=== PATIENT | female | born 1970 | race Caucasian/White ===

== ENCOUNTER 2021-05-22 07:23 | Outpatient (REF) | payer OTHER, SELFPAY ==
[2021-05-22 12:17] LABS: Alanine Aminotransferase 25 U/L (0-31); Anion Gap 10 (12-20); Aspartate Amino Transferase 22 U/L (5-31); Blood Urea Nitrogen 16 mg/dL (9-16); Calcium 9.3 mg/dL (8.4-10.2); Carbon Dioxide 27 mmol/L (22-29); Chloride 106 mmol/L (96-108); Cholesterol 163 mg/dL; Estimated Average Glucose 111 mg/dL; Estimated Glomerular Filt Rate > 60; Glucose Fasting 112 mg/dL (60-99); HDL Cholesterol 49 mg/dL; Hemoglobin A1c % 5.5 %; LDL Cholesterol Calculated 102 mg/dl; Potassium 4.4 mmol/L (3.3-5.1); Sodium 139 mmol/L (135-145); Triglycerides 61 mg/dL
== END 2021-05-22 07:24 | disposition home or self-care (01) ==
LOC: HO.HMGCLDS 07:23
PROVIDERS: PCP Internal Medicine; Visit Provider Internal Medicine
DX: R73.03 Prediabetes (principal); I65.21 Occlusion and stenosis of right carotid artery; E78.5 Hyperlipidemia, unspecified; E66.09 Other obesity due to excess calories; Z68.33 Body mass index [BMI] 33.0-33.9, adult; Z86.73 Personal history of transient ischemic attack (TIA), and cerebral infarction without residual deficits; I10 Essential (primary) hypertension
CPT/HCPCS: 36415; 80048; 80061; 83036; 84450; 84460

== ENCOUNTER 2021-07-03 16:22 | Outpatient (REF) | payer OTHER, SELFPAY ==
--- NOTE | ~2021-07-03 | MM_ITS ---
EXAMINATION: MM SCREENING DIGITAL BREAST TOMOSYNTHESIS, BILATERAL CLINICAL INFORMATION: Screening. Asymptomatic. The lifetime risk of breast cancer based on the Tyrer-Cuzick Model is 18%. COMPARISON: Mammography: 11/27/2019, 03/30/2017, 01/20/2016 TECHNIQUE: Digital breast tomosynthesis is performed in both the craniocaudal and mediolateral oblique views along with computer-aided detection (CAD). Synthesized 2D images are generated from the tomosynthesis. FINDINGS: There are scattered areas of fibroglandular density (ACR BI-RADS breast composition Category b). There are no significant masses, abnormal calcifications, or other abnormalities. Parenchymal pattern is similar to prior studies. No developing density. The axilla and skin contours are unremarkable. MM/MM tomosynthesis screening BI IMPRESSION: No mammographic evidence of malignancy. ASSESSMENT: BI-RADS 1: Negative RECOMMENDATION: Routine annual mammography screening. This patient's information was entered into a reminder system with a target due date for their next mammogram.
== END 2021-07-03 16:23 | disposition home or self-care (01) ==
LOC: HO.MAMMO 16:22
PROVIDERS: PCP Internal Medicine; Visit Provider Internal Medicine
DX: Z12.31 Encounter for screening mammogram for malignant neoplasm of breast (principal)
CPT/HCPCS: 77063; 77067

== ENCOUNTER → 2021-07-24 15:53 | Outpatient (BNVA) | payer OTHER, SELFPAY | PROVIDERS: PCP Internal Medicine; Visit Provider Nurse Practitioner | DX: Z01.818 Encounter for other preprocedural examination (principal); Z83.71 Family history of colonic polyps | CPT/HCPCS: 99202 ==

== ENCOUNTER 2022-07-13 09:38 | Day surgery (SDC) | payer OTHER, SELFPAY ==
--- NOTE | 2022-07-09 11:59 | HO.ANESPROP2 ---
Documented by User: Maritza Martin NP 07/09/22 12:01 HPI - Anesthesia Eval Consult details Narrative: 51yo F for Colonoscopy PMFSH Active Problems Active Problems: All Active Problems (Updated 07/24/21 @ 17:03 by LIGIA Mora) Family history of polyps in the colon (Acute) Exercise induced bronchospasm (Acute) Acute sinusitis (Acute) History of CVA (cerebrovascular accident) (Acute) Cervical cancer screening (Acute) Obesity (Acute) JUAN on CPAP (Acute) Stenosis of right internal carotid artery (Acute) Prediabetes (Acute) Dyslipidemia (Acute) Essential hypertension (Acute) Past Medical History Medical History (Updated 07/24/21 @ 17:03 by LIGIA Mora) Cervical cancer screening CVA (cerebral vascular accident) Dyslipidemia Essential hypertension Exercise induced bronchospasm History of CVA (cerebrovascular accident) Obesity JUAN on CPAP Prediabetes Stenosis of right internal carotid artery Family History Family History (Updated 05/19/21 @ 14:53 by Liil Latif CMA) Mother Crohn's disease Paternal Grandmother Breast cancer Paternal Grandfather FHx: early [place] Surgical History Surgical History (Updated 07/24/21 @ 16:12 by ALAN Shore) History of colonoscopy History of endoscopy No pertinent past surgical history Social History Social History Housing: House Alcohol intake: former Patient Tobacco Use Status: Former Tobacco user e-Cigarette/Vaping Use: Never Used Are you DNR?: No Advance Directives: No Advance Directives Information Provided: Yes service: No Current occupational status: employed Cognitive needs: No Hearing needs: No Vision needs: No Meds Allergies Allergy/AdvReac Type Severity Reaction Status Date / Time bee sting Allergy Unknown hives Uncoded 07/24/21 16:11 coconut Allergy Unknown hives Uncoded 07/24/21 16:11 Home Medications Medication Instructions Recorded Confirmed Last Taken Type aspirin 81 mg tablet,delayed 81 mg PO BEDTIME 05/02/20 07/07/22 Unknown History release budesonide-formoterol HFA 160 inhalation 05/02/20 05/15/20 Unknown History mcg-4.5 mcg/actuation aerosol inhaler Exam Exam Date and Time: July 09, 2022 115 Assessment and Plan Assessment Anesthesia Assessment: Chart Reviewed Documented by User: Raudel Parker MD 07/13/22 11:41 PMF Past Medical History Medical History (Updated 07/24/21 @ 17:03 by LIGIA Mora) Cervical cancer screening CVA (cerebral vascular accident) Dyslipidemia Essential hypertension Exercise induced bronchospasm History of CVA (cerebrovascular accident) Obesity JUAN on CPAP Prediabetes Stenosis of right internal carotid artery Family History Family History (Updated 05/19/21 @ 14:53 by Lili Latif CMA) Mother Crohn's disease Paternal Grandmother Breast cancer Paternal Grandfather FHx: early [place] Family history of problems with anesthesia: No Surgical History Surgical History (Updated 07/24/21 @ 16:12 by ALAN Shore) History of colonoscopy History of endoscopy No pertinent past surgical history History of Problems with Anesthesia: No Social History Social History Housing: House Alcohol intake: former Patient Tobacco Use Status: Former Tobacco user e-Cigarette/Vaping Use: Never Used Are you DNR?: No Advance Directives: No Advance Directives Information Provided: Yes service: No Current occupational status: employed Cognitive needs: No Hearing needs: No Vision needs: No Meds Allergies Allergy/AdvReac Type Severity Reaction Status Date / Time bee sting Allergy Unknown hives Uncoded 07/24/21 16:11 coconut Allergy Unknown hives Uncoded 07/24/21 16:11 Home Medications Medication Instructions Recorded Confirmed Last Taken Type aspirin 81 mg tablet,delayed 81 mg PO BEDTIME 05/02/20 07/07/22 Unknown History release budesonide-formoterol HFA 160 inhalation 05/02/20 05/15/20 Unknown History mcg-4.5 mcg/actuation aerosol inhaler Exam Airway Mallampati Class: II TM Dist: >3cm Assessment and Plan Assessment Anesthesia Assessment: Anesthesia Plan Discussed Final Anesthetic Review Family History of Problems with Anesthesia: No History of Problems with Anesthesia: No NPO: Yes ASA Class: III Final Preanesthetic Review: No Changes in Pt Med Stat, Meds/Allgs Chart Reviewed, Consent Obtained/Reviewed and Anes Risks/Benef Reviewed Patient Risk: Intermediate Procedure Risk: Low Anesthetic Plan Anesthetic Plan: MAC: Disposition: Standard PACU
[2022-07-13 10:38] LABS: UPreg QC Valid YES; Urine Pregnancy NEGATIVE (NEGATIVE)
[2022-07-13 10:56] VITALS: BP 149/88; PULSE 74; RESP 18; TEMP 36.4; O2SAT 97; BMI 34.2
[2022-07-13] MEDS: Lactated Ringers 1,000 ML 100 ML IVCONT (11:14)
--- NOTE | 2022-07-13 11:36 | MHC.SHP ---
Pre-Procedural Eval Section A Date of Service: 07/13/22 Section B Chief Complaint: Family history of colonic polyps Relevant Family History (Specify if Yes): No Relevant Social History: None Present Medications: see Short Stay Collaborative assessment Medical History: Significant History (Asthma JUAN CVA very mild rt weakness when fatigued Diabetes - borderline High cholesterol Hypertension Carotid artery stenosis) History of Previous Operations: Relevant previous surgery/procedure and date(s) (History of colonoscopy History of endoscopy) Allergies: Allergies Allergy/AdvReac Type Severity Reaction Status Date / Time bee sting Allergy Unknown hives Uncoded 07/24/21 16:11 coconut Allergy Unknown hives Uncoded 07/24/21 16:11 Review of Systems Sugical H&P ROS: Negative: Constitution, Cardiovascular, Respiratory, Neurological, Psychiatric, Hem-Onc, Allergic/Immunologic, Gastrointestinal, Genitourinary, Musculoskeletal, Integumentary, Endocrine and Eyes/Ears/Nose/Throat Exam Surgical H&P Exam: Normal: HEENT, Normal: Heart, Normal: Lungs, Normal: Extremities, Normal: Abdomen, Normal: Skin and Normal: Neurological Plan Diagnosis/Plan: Unchanged I have reviewed the history and physical and performed a pertinent physical examination on my patient. No changes have occurred unless specified. Time Spent With Patient Time: Total time managing care of this patient today ____ minutes.
--- NOTE | 2022-07-13 11:37 | W.PM.OPN ---
Operative Note Operative Note Date of Service: 07/13/22 Narrative: Operative Information Procedure Description: Colonoscopy Indication: fh of colon polyps Anesthesia: MAC COLONOSCOPY Instrument: Olympus variable stiffness ADULT scope 190L Colonoscopy Monitoring: Vital signs and clinical assessment, continuous EKG monitoring, Pulse oximetry, Carbon Dioxide monitoring and blood pressure monitoring were done throughout the procedure. Colon withdrawal time was 13 minutes. Procedure: The patient was placed in the left lateral decubitis position and pre-procedure medications were administered. After a digital rectal examination of the ano-rectum, the video colonoscope was inserted into the rectum and advanced through the colon to the cecum/TI. The colonoscope was slowly withdrawn in a retrograde panoramic fashion and the colon mucosa was carefully examined including a retroflexed view of the rectum. Findings and interventions are described below. Procedure Difficulty: easy Findings: Terminal Ileum-normal Cecum:normal Ascending Colon: normal Transverse Colon -normal Descending Colon:normal Sigmoid Colon: normal Rectum: Retroflexion with small internal hemorrhoids, grade I, 7-9 mm sessile polyp lesion with a waxy yellowish surface, lifted with eleview then removed with cold snare. 2 smaller adjacent sessile polyps 3-4 mm removed with cold forceps Anorectum - normal Colon preparation: [place] Bowel Preparation Scale Right colon; 2 Transverse colon: 3 Left colon; 3 (0 = Unprepared colon segment with mucosa not seen due to solid stool that cannot be cleared. 1 = Portion of mucosa of the colon segment seen, but other areas of the colon segment not well seen due to staining, residual stool and/or opaque liquid. 2 = Minor amount of residual staining, small fragments of stool and/or opaque liquid, but mucosa of colon segment seen well. 3 = Entire mucosa of colon segment seen well with no residual staining, small fragments of stool or opaque liquid) Impression and Post Procedure Diagnosis: polyps (possibly NET) internal hemorrhoids Plan: High fiber diet leaflet Avoid straining at stool, epsom salts and sitz bath, anusol supps or cream Repeat Colonoscopy in 5 years or earlier if clinically indicated Above findings were reviewed with the patient and relevant handouts were provided if indicated.
[2022-07-13 12:19] VITALS: BP 146/74; PULSE 79; RESP 16; TEMP 36.1; O2SAT 100
[2022-07-13 12:34] VITALS: BP 147/75; PULSE 73; RESP 16; TEMP 36.6; O2SAT 100
[2022-07-13 12:49] VITALS: BP 147/62; PULSE 71; RESP 16; TEMP 36.8; O2SAT 100
== END 2022-07-13 14:09 | disposition home or self-care (01) ==
PROVIDERS: Nurse Practitioner; PCP Internal Medicine; Visit Provider Internal Medicine Gastroenterology
PROC: 0DJD8ZZ Inspection of Lower Intestinal Tract, Via Natural or Artificial Opening Endoscopic (ICD-10-PCS; CPT 45378; principal; 2022-07-13 11:00)
DX: Z12.11 Encounter for screening for malignant neoplasm of colon (principal); Z83.71 Family history of colonic polyps; C7A.026 Malignant carcinoid tumor of the rectum; K63.5 Polyp of colon; K64.0 First degree hemorrhoids; I65.29 Occlusion and stenosis of unspecified carotid artery; I10 Essential (primary) hypertension; E78.00 Pure hypercholesterolemia, unspecified; R73.03 Prediabetes; J45.909 Unspecified asthma, uncomplicated; G47.33 Obstructive sleep apnea (adult) (pediatric); Z99.89 Dependence on other enabling machines and devices; Z86.73 Personal history of transient ischemic attack (TIA), and cerebral infarction without residual deficits; Z87.891 Personal history of nicotine dependence; Z79.82 Long term (current) use of aspirin
CPT/HCPCS: 45385; 45380; 45381; 81025; 88305; 88341; 88342; 88360

== ENCOUNTER 2022-08-02 10:20 | Day surgery (SDC) | payer OTHER, SELFPAY ==
--- NOTE | 2022-07-30 12:54 | P.CONAN_ITS ---
Documented by User: Maritza Martin NP 07/30/22 12:54 HPI - Anesthesia Eval Consult details Narrative: 51yo F for Sigmoidoscopy Flexible s/p colo 07/13/22 with MAC PMFSH Active Problems Active Problems: All Active Problems (Updated 07/23/22 @ 08:56 by Kathy Rangel MD) Carcinoid tumor (Acute) Family history of polyps in the colon (Acute) Exercise induced bronchospasm (Acute) Acute sinusitis (Acute) History of CVA (cerebrovascular accident) (Acute) Cervical cancer screening (Acute) Obesity (Acute) JUAN on CPAP (Acute) Stenosis of right internal carotid artery (Acute) Prediabetes (Acute) Dyslipidemia (Acute) Essential hypertension (Acute) Past Medical History Medical History Cervical cancer screening CVA (cerebral vascular accident) Dyslipidemia Essential hypertension Exercise induced bronchospasm History of CVA (cerebrovascular accident) Obesity JUAN on CPAP Prediabetes Stenosis of right internal carotid artery Family History Family History Mother Crohn's disease Paternal Grandmother Breast cancer Paternal Grandfather FHx: early [place] Family history of problems with anesthesia: No Surgical History Surgical History History of colonoscopy History of endoscopy No pertinent past surgical history History of Problems with Anesthesia: No Social History Social History Housing: House Alcohol intake: former Patient Tobacco Use Status: Former Tobacco user e-Cigarette/Vaping Use: Never Used Substance Use Frequency: Occasionally Are you DNR?: No Advance Directives: No Advance Directives Information Provided: Yes Nutrition Risks: No Nutritional Risk Patient : No FDLMP: 07/14/22 service: No Current occupational status: employed Cognitive needs: No Hearing needs: No Vision needs: No Meds Allergies Allergy/AdvReac Type Severity Reaction Status Date / Time bee sting Allergy Unknown hives Uncoded 07/24/21 16:11 coconut Allergy Unknown hives Uncoded 07/24/21 16:11 Home Medications Medication Instructions Recorded Confirmed Last Taken Type aspirin 81 mg tablet,delayed 81 mg PO BEDTIME 05/02/20 07/07/22 Unknown History release budesonide-formoterol HFA 160 inhalation 05/02/20 05/15/20 Unknown History mcg-4.5 mcg/actuation aerosol inhaler Exam Exam Date and Time: July 30, 2022 1254 Assessment and Plan Assessment Anesthesia Assessment: Chart Reviewed Final Anesthetic Review Family History of Problems with Anesthesia: No History of Problems with Anesthesia: No Documented by User: Karma Hooker MD 08/02/22 13:10 PMF Active Problems Active Problems: All Active Problems (Updated 08/02/22 @ 12:34 by Latham MD) Carcinoid tumor (Acute) Family history of polyps in the colon (Acute) Exercise induced bronchospasm (Acute) Acute sinusitis (Acute) History of CVA (cerebrovascular accident) (Acute) Cervical cancer screening (Acute) Obesity (Acute) JUAN on CPAP (Acute). On CPAP Stenosis of right internal carotid artery (Acute) Prediabetes (Acute) Dyslipidemia (Acute) Essential hypertension (Acute) Past Medical History Medical History Cervical cancer screening CVA (cerebral vascular accident) Dyslipidemia Essential hypertension Exercise induced bronchospasm History of CVA (cerebrovascular accident) Obesity JUAN on CPAP Prediabetes Stenosis of right internal carotid artery Family History Family History Mother Crohn's disease Paternal Grandmother Breast cancer Paternal Grandfather FHx: early [place] Surgical History Surgical History History of colonoscopy History of endoscopy No pertinent past surgical history Social History Social History Housing: House Alcohol intake: former Patient Tobacco Use Status: Former Tobacco user e-Cigarette/Vaping Use: Never Used Substance Use Frequency: Occasionally Are you DNR?: No Advance Directives: No Advance Directives Information Provided: Yes Nutrition Risks: No Nutritional Risk Patient : No FDLMP: 07/14/22 service: No Current occupational status: employed Cognitive needs: No Hearing needs: No Vision needs: No Meds Allergies Allergy/AdvReac Type Severity Reaction Status Date / Time bee sting Allergy Unknown hives Uncoded 07/24/21 16:11 coconut Allergy Unknown hives Uncoded 07/24/21 16:11 Home Medications Medication Instructions Recorded Confirmed Last Taken Type aspirin 81 mg tablet,delayed 81 mg PO BEDTIME 05/02/20 07/07/22 Unknown History release budesonide-formoterol HFA 160 inhalation 05/02/20 05/15/20 Unknown History mcg-4.5 mcg/actuation aerosol inhaler Exam Height,Weight and Vital Signs: Height 5 ft 2 in Weight 86.183 kg Vital Signs Temp Pulse Resp BP Pulse Ox O2 Del Method 97.9 F 84 18 135/69 99 Room Air 08/02/22 12:27 08/02/22 12:27 08/02/22 12:27 08/02/22 12:27 08/02/22 12:27 08/02/22 12:27 Pertinent Lab Results Pertinent Lab Results: Lab Results 08/02/22 Range/Units 10:30 Urine Test NEGATIVE (NEGATIVE) Airway Mallampati Class: III TM Dist: >3cm Neck ROM: Full Loose/Missing/Broken Teeth: Yes (Top right back, bottom left back broken. Denies loose or missing) Heart: RRR Lungs: CTAB Assessment and Plan Assessment Anesthesia Assessment: Anesthesia Plan Discussed Final Anesthetic Review NPO: Yes ASA Class: III Final Preanesthetic Review: No Changes in Pt Med Stat, Meds/Allgs Chart Revie wed, Consent Obtained/Reviewed and Anes Risks/Benef Reviewed Patient Risk: Intermediate Procedure Risk: Low Assessment/Block/Sedation in SS: Assess/Block/Sedation-SS Anesthetic Plan Anesthetic Plan: MAC: Disposition: Standard PACU
[2022-08-02 10:55] VITALS: BMI 34.7
[2022-08-02 11:00] LABS: UPreg QC Valid YES; Urine Pregnancy NEGATIVE (NEGATIVE)
[2022-08-02] MEDS: Lactated Ringers 1,000 ML 100 ML IVCONT (11:12)
[2022-08-02] MEDS: Sodium Phosphate,Mono-Dibasic 133 ML ENEMA PR (11:13)
--- NOTE | 2022-08-02 11:59 | HO.ANESPROP2 ---
[facility] Active Problems Active Problems: All Active Problems (Updated 07/23/22 @ 08:56 by Kathy Rangel MD) Carcinoid tumor (Acute) Family history of polyps in the colon (Acute) Exercise induced bronchospasm (Acute) Acute sinusitis (Acute) History of CVA (cerebrovascular accident) (Acute) Cervical cancer screening (Acute) Obesity (Acute) JUAN on CPAP (Acute) Stenosis of right internal carotid artery (Acute) Prediabetes (Acute) Dyslipidemia (Acute) Essential hypertension (Acute) Past Medical History Medical History Cervical cancer screening CVA (cerebral vascular accident) Dyslipidemia Essential hypertension Exercise induced bronchospasm History of CVA (cerebrovascular accident) Obesity JUAN on CPAP Prediabetes Stenosis of right internal carotid artery Functional capacity: independent ambulation Patient : No Family History Family History Mother Crohn's disease Paternal Grandmother Breast cancer Paternal Grandfather FHx: early [place] Family history of problems with anesthesia: No Surgical History Surgical History History of colonoscopy History of endoscopy No pertinent past surgical history History of Problems with Anesthesia: No Social History Social History Housing: House Alcohol intake: former Patient Tobacco Use Status: Former Tobacco user e-Cigarette/Vaping Use: Never Used Substance Use Frequency: Occasionally Are you DNR?: No Advance Directives: No Advance Directives Information Provided: Yes Nutrition Risks: No Nutritional Risk FDLMP: 07/14/22 service: No Current occupational status: employed Cognitive needs: No Hearing needs: No Vision needs: No Meds Allergies Allergy/AdvReac Type Severity Reaction Status Date / Time bee sting Allergy Unknown hives Uncoded 07/24/21 16:11 coconut Allergy Unknown hives Uncoded 07/24/21 16:11 Active Medications: Current Medications Lactated Ringer's (Lr) 1,000 mls @ 100 mls/hr IVCONT .Q10H LATOYA Last Admin: 08/02/22 11:12 Dose: 100 mls/hr Sodium Biphosphate/Sodium Phosphate (Sodium Phosphate,[place]-Dibasic 133 Ml Enema) 133 ml ID ONCE PRN PRN Reason: Consult order Last Admin: 08/02/22 11:13 Dose: 133 ml Home Medications Medication Instructions Recorded Confirmed Last Taken Type aspirin 81 mg tablet,delayed 81 mg PO BEDTIME 05/02/20 07/07/22 Unknown History release budesonide-formoterol HFA 160 inhalation 05/02/20 05/15/20 Unknown History mcg-4.5 mcg/actuation aerosol inhaler Exam Exam Date and Time: August 02, 2022 1159 Height,Weight and Vital Signs: Height 5 ft 2 in Weight 86.183 kg Pertinent Lab Results Pertinent Lab Results: Laboratory Tests 08/02/22 10:30 Urine Test NEGATIVE Airway Mallampati Class: III TM Dist: >3cm Neck ROM: Full Heart: RRR Lungs: CTA Assessment and Plan Final Anesthetic Review Family History of Problems with Anesthesia: No History of Problems with Anesthesia: No ASA Class: III Final Preanesthetic Review: Consent Obtained/Reviewed Anesthetic Plan Anesthetic Plan: MAC: Disposition: Standard PACU
--- NOTE | 2022-08-02 12:02 | MHC.SHP ---
Pre-Procedural Eval Section A Date of Service: 08/02/22 Section B Chief Complaint: Benign carcinoid tumor of unspecified site Details of Present Illness: flex sig for reassessment Relevant Social History: None Present Medications: see Short Stay Collaborative assessment Medical History: Significant History (Cervical cancer screening CVA (cerebral vascular accident) Dyslipidemia Essential hypertension Exercise induced bronchospasm History of CVA (cerebrovascular accident) Obesity JUAN on CPAP Prediabetes Stenosis of right internal carotid artery) History of Previous Operations: Relevant previous surgery/procedure and date(s) (History of colonoscopy History of endoscopy) Allergies: Allergies Allergy/AdvReac Type Severity Reaction Status Date / Time bee sting Allergy Unknown hives Uncoded 07/24/21 16:11 coconut Allergy Unknown hives Uncoded 07/24/21 16:11 Review of Systems Sugical H&P ROS: Negative: Constitution, Cardiovascular, Respiratory, Neurological, Psychiatric, Hem-Onc, Allergic/Immunologic, Gastrointestinal, Genitourinary, Musculoskeletal, Integumentary, Endocrine and Eyes/Ears/Nose/Throat Exam Surgical H&P Exam: Normal: HEENT, Normal: Heart, Normal: Lungs, Normal: Extremities, Normal: Abdomen, Normal: Skin and Normal: Neurological Plan Diagnosis/Plan: Unchanged I have reviewed the history and physical and performed a pertinent physical examination on my patient. No changes have occurred unless specified. Time Spent With Patient Time: Total time managing care of this patient today ____ minutes.
[2022-08-02 12:27] VITALS: BP 135/69; PULSE 84; RESP 18; TEMP 36.6; O2SAT 99
[2022-08-02 13:08] VITALS: BP 138/74; PULSE 93; RESP 20; TEMP 36.7; O2SAT 99
--- NOTE | 2022-08-02 13:13 | W.PM.OPN ---
Operative Note Operative Note Date of Service: 08/02/22 Narrative: Operative Information Procedure Description: sigmoidoscopy Indication: Carcinoid tumour of rectum Anesthesia: MAC Sigmoidoscopy Instrument: Upper endoscope Colonoscopy Monitoring: Vital signs and clinical assessment, continuous EKG monitoring, Pulse oximetry, Carbon Dioxide monitoring and blood pressure monitoring were done throughout the procedure. Procedure: The patient was placed in the left lateral decubitis position and pre-procedure medications were administered. After a digital rectal examination of the ano-rectum, the video colonoscope was inserted into the rectum and advanced through the colon to the transverse colon. The scope was slowly withdrawn in a retrograde panoramic fashion and the colon mucosa was carefully examined including a retroflexed view of the rectum. Findings and interventions are described below. Procedure Difficulty: easy Findings: Sigmoid Colon: normal Rectum: Retroflexion with small internal hemorrhoids, grade I. Scar from prior polypectomy noted at about 14 cm from anal verge. Scar was rebiopsy excised and then beti ink was injected proximal and distal to the site. Anorectum - normal Colon preparation: adequate Impression and Post Procedure Diagnosis: internal hemorrhoids post polypectomy re excision Plan: f/u oncology EUS as o/p--expect this to be negative Above findings were reviewed with the patient and relevant handouts were provided if indicated.
[2022-08-02 13:23] VITALS: BP 156/91; PULSE 80; RESP 20; TEMP 36.4; O2SAT 99
== END 2022-08-02 14:03 | disposition home or self-care (01) ==
PROVIDERS: Nurse Practitioner; PCP Internal Medicine; Visit Provider Internal Medicine Gastroenterology
PROC: 0DJD8ZZ Inspection of Lower Intestinal Tract, Via Natural or Artificial Opening Endoscopic (ICD-10-PCS; CPT 45330; principal; 2022-08-02 12:00)
DX: D3A.026 Benign carcinoid tumor of the rectum (principal); K64.8 Other hemorrhoids; K62.89 Other specified diseases of anus and rectum; Z83.71 Family history of colonic polyps; I10 Essential (primary) hypertension; E78.5 Hyperlipidemia, unspecified; G47.33 Obstructive sleep apnea (adult) (pediatric); R73.03 Prediabetes; Z86.73 Personal history of transient ischemic attack (TIA), and cerebral infarction without residual deficits; Z79.82 Long term (current) use of aspirin; Z79.899 Other long term (current) drug therapy
CPT/HCPCS: 45331; 45335; 81025; 88305

== ENCOUNTER → 2022-08-13 11:09 | Outpatient (BNVA) | payer OTHER, SELFPAY | PROVIDERS: PCP Internal Medicine; Visit Provider Internal Medicine Gastroenterology ==

== ENCOUNTER 2022-09-29 08:47 | Outpatient (REF) | payer OTHER, SELFPAY ==
--- NOTE | ~2022-09-29 | CT_ITS ---
EXAMINATION: CT ABDOMEN AND PELVIS WITH CONTRAST CLINICAL INFORMATION: Rectal carcinoid COMPARISON: None available. TECHNIQUE: Multidetector volumetric images were obtained from the superior aspect of the liver through the pubic symphysis following administration 85 mL of Omnipaque 350 intravenous contrast. Sagittal and coronal reformatted images were obtained on the technologist's workstation. Oral contrast: No This CT examination was performed using dose optimization techniques as appropriate, variously including the following: *Automated exposure control *Adjustment of mA and/or kV according to patient size (this includes techniques or standardized protocols for targeted exams where dose is matched to indication/reason for exam; i.e. extremities or head) *Use of iterative reconstruction technique DLP: 500 mGy-cm FINDINGS: LUNG BASES: 2 mm nodule in the posterior lateral aspect of the right middle lobe (series 4, image 68). 1 mm nodule in the posterior aspect of the left lower lobe (series 4, image 45). No large pleural effusion. No pneumothorax. LIVER, GALLBLADDER, AND BILIARY TREE: The liver is normal in size and shape. Decreased hepatic attenuation suggesting hepatic steatosis. No focal hepatic lesion or biliary ductal dilatation is present. The gallbladder is unremarkable with no evidence of radiopaque gallstones, gallbladder wall thickening, or obvious pericholecystic inflammatory changes. PANCREAS: Unremarkable. SPLEEN: Unremarkable. ADRENAL GLANDS: Unremarkable. KIDNEYS AND URETERS: Subcentimeter hypodense focus along the left renal lower pole, too small to characterize though statistically representing a cyst.. Additional subcentimeter hypodense focus in the right renal interpolar region noted posteriorly. The kidneys are normal in size, shape, and attenuation. No hydronephrosis, hydroureter, or calculi seen. No perinephric stranding. BLADDER: Unremarkable. GASTROINTESTINAL TRACT: Slightly nodular thickening along the intraluminal posterior aspect of the rectosigmoid colon (series 4, image 595) measuring 6 mm. Correlation with recent colonoscopy if available. The small and large bowel are unremarkable. The appendix is unremarkable. ABDOMINAL WALL: Calcification noted along the umbilicus. LYMPH NODES: Normal. VASCULAR: Unremarkable. PELVIC VISCERA: Anteverted uterus. Hypodense focus noted in the vagina likely representing a tampon. OSSEOUS STRUCTURES: Multilevel degenerative changes of the thoracolumbar and lumbosacral spine. CT/CT abdomen pelvis w IV con IMPRESSION: 1. Slightly nodular thickening along the intraluminal posterior aspect of the rectosigmoid colon measuring 6 mm. Correlation with recent colonoscopy if available. 2. Bilateral pulmonary nodules the largest measuring up to 2 mm. Follow-up as per oncologic criteria. 3. Decreased hepatic attenuation suggesting hepatic steatosis. 4. Subcentimeter hypodense foci involving the bilateral kidneys, too small to characterize though statistically representing cysts.
[2022-09-29] MEDS: Barium Sulfate Oral (Mocha) 450 ML ORAL.SUSP 900 ML PO (11:18)
[2022-09-29] MEDS: iohexoL 350 MG/ML 100 ML INFUS..BTL IV (11:18)
== END 2022-09-29 08:48 | disposition home or self-care (01) ==
LOC: HO.CT 08:47
PROVIDERS: PCP Internal Medicine; Visit Provider Internal Medicine
DX: D3A.00 Benign carcinoid tumor of unspecified site (principal)
CPT/HCPCS: 74177; Q9967